=== PATIENT | female | born 1950 | race Caucasian/White ===

== ENCOUNTER 2023-01-06 15:28 | Outpatient (CLI) | payer MEDICARE, BC, OTHER, SELFPAY ==
--- NOTE | 2023-01-06 14:00 | DI.RAD_ITS ---
Exam(s) XR SHOULDER LT COMPLETE 2+V EXAM: XR SHOULDER LT COMPLETE 2+V CLINICAL HISTORY: Left shoulder pain. TECHNIQUE: 2D digital imaging was performed of the left shoulder. Two images were obtained. AP and Y views were obtained. COMPARISON: CR SHOULDER from 10/01/2022 FINDINGS: BONES: There is stable alignment of the proximal left humeral fracture deformity. No new fracture is seen. The bones are osteopenic. There are old healed rib fractures. JOINTS: No dislocation present. SOFT TISSUE: Normal. IMPRESSION: Stable humeral fracture deformity. DATA REPOSITORY: RADIATION DOSE DELIVERED:
== END 2023-01-06 15:29 | disposition home or self-care (01) ==
LOC: DIORS 15:28
PROVIDERS: PCP Physician Assistant Medical; Referring Provider Physician Assistant Medical; Visit Provider Student in an Organized Health Care Education/Training Program
DX: M25.512 Pain in left shoulder (principal); S42.202A Unspecified fracture of upper end of left humerus, initial encounter for closed fracture; X58.XXXA Exposure to other specified factors, initial encounter
CPT/HCPCS: 99203; 73030

== ENCOUNTER → 2023-01-21 01:25 | Outpatient (CLI) | payer MEDICARE, BC, OTHER, SELFPAY ==
--- NOTE | 2023-01-21 06:12 | DI.MRI_ITS ---
Exam(s) MR UPPER JOINT LT WO EXAM: MR UPPER JOINT LT WO CLINICAL HISTORY: ? RTC TEAR, PAIN NOT RESOLVING,closed fx lt proximal humerus,[id number]. TECHNIQUE: Multiplanar multisequence MRI was performed. COMPARISON: CR SHOULDER from 07/08/2022 CR XR SHOULDER LT COMPLETE 2+V from 01/06/2023 FINDINGS: BONES: There again seen findings of a fracture involving the surgical neck of the left humerus. Ther e is associated edema. JOINTS: Degenerative changes are seen at the acromioclavicular joint. The glenohumeral joint is norm al. TENDONS: Supraspinatus: Tendinosis but no evidence of a tear. Infraspinatus: Tendinosis but no evidence of a tear. Subscapularis: Unremarkable. Teres [place]: Unremarkable. Biceps and [place]: Unremarkable. MUSCLES: Unremarkable. GLENOID LABRUM: Unremarkable on this noncontrast examination. There is hyperintense signal seen super ior posteriorly between the labrum and the capsule. There is a question of disruption of the capsule at the superior posterior aspect of the joint. SOFT TISSUES: Unremarkable. LIGAMENTS: Unremarkable. OTHER: Subacromial and subdeltoid bursae are unremarkable. IMPRESSION: 1. Stable alignment of the proximal left humeral fracture. 2. Tendinosis of the supraspinatus and infraspinatus tendons without evidence of a tear. 3. Question of disruption of the capsule at the posterior superior aspect of the joint. DATA REPOSITORY:
== END ==
PROVIDERS: PCP Physician Assistant Medical; Visit Provider Student in an Organized Health Care Education/Training Program
DX: S42.292D Other displaced fracture of upper end of left humerus, subsequent encounter for fracture with routine healing (principal); X58.XXXD Exposure to other specified factors, subsequent encounter
CPT/HCPCS: 73221

== ENCOUNTER → 2023-01-26 11:08 | Outpatient (BNVA) | payer MEDICARE, BC, OTHER, SELFPAY | PROVIDERS: PCP Physician Assistant Medical; Referring Provider Physician Assistant Medical; Visit Provider Student in an Organized Health Care Education/Training Program | DX: S42.202D Unspecified fracture of upper end of left humerus, subsequent encounter for fracture with routine healing (principal); X58.XXXD Exposure to other specified factors, subsequent encounter; M25.612 Stiffness of left shoulder, not elsewhere classified | CPT/HCPCS: 99213 ==

== ENCOUNTER → 2024-02-09 09:59 | Outpatient (BNVA) | payer MEDICARE, BC, OTHER, SELFPAY | PROVIDERS: PCP Physician Assistant Medical; Referring Provider Physician Assistant Medical; Visit Provider Physician Assistant Surgical | DX: J84.9 Interstitial pulmonary disease, unspecified (principal); R93.89 Abnormal findings on diagnostic imaging of other specified body structures | CPT/HCPCS: 36415; 99215 ==

== ENCOUNTER 2024-02-09 12:25 | Outpatient (REF) | payer MEDICARE, BC, OTHER, SELFPAY ==
[2024-02-10 15:51] LABS: Rheumatoid Factor <8.6 IU/mL (<12.0)
[2024-02-10 15:53] LABS: Cyclic Citrullinated Peptide <2.5 U/mL (<5.0)
[2024-02-10 16:00] LABS: Ro60 Ab, IgG <7.0 CU (<20.0); SS-A/Ro, IgG <2.3 CU (<20.0); SS-B (La) Ab, IgG <3.3 CU (<20.0)
[2024-02-10 16:01] LABS: ANA Interpretation Positive (Negative)
== END 2024-02-09 12:26 | disposition home or self-care (01) ==
LOC: LBN 12:25
PROVIDERS: PCP Physician Assistant Medical; Visit Provider Physician Assistant Surgical
DX: J84.89 Other specified interstitial pulmonary diseases (principal); M19.09 Primary osteoarthritis, other specified site
CPT/HCPCS: 86200; 86038; 86235; 86431

== ENCOUNTER 2024-02-25 00:39 | Outpatient (CLI) | payer MEDICARE, BC, SELFPAY ==
--- NOTE | 2024-02-25 07:00 | DI.CT_ITS ---
Exam(s) CT CHEST HIGH RESOLUTION EXAM: CT CHEST HIGH RESOLUTION CLINICAL HISTORY: ILD, abnormal CXR. TECHNIQUE: Imaging protocol: Axial computed tomography images were obtained and coronal and sagittal reformatted images were created and reviewed. Additional expiratory images were performed at 10 mill imeter intervals. CONTRAST MATERIAL: Noncontrast COMPARISON: CR XR CHEST 2VW (D) from 12/30/2023 FINDINGS: Pulmonary parenchyma: No consolidation. No suspicious nodules. Mild apical scarring. Mild areas of a ir trapping in the upper lobes, left greater than right. Emphysema: None. Tracheobronchial tree: No mucous plugging. No bronchiectasis . Interstitial changes: Minimal interstitial changes at the left lung base. Pleura: No effusion or pneumothorax. Heart: The heart is mildly dilated. The coronary arteries show mild calcifications. Aorta: Thoracic aorta non-dilated. Mild atherosclerotic changes. Lymph nodes: No enlarged lymph nodes. Bones: Degenerative changes are seen. No evidence of compression fracture. Old left rib fracture s. Upper abdomen: Unremarkable. Soft tissues: Unremarkable. IMPRESSION: Minimal interstitial changes at the left lung base. The findings appears significantly improved when compared with prior chest x-ray. RADIATION DOSE DELIVERED: 351.22mGy.cm Total DLP 351.22mGy.cm Total DLP DATA REPOSITORY: All CT scans at this facility are submitted to the National Radiology Data Registry (NRDR) Dose Index Registry (DIR) with the [employer] ([employer]). RADIATION OPTIMIZATION: All CT scans at this facility use at least one of these dose optimization te chniques: automated exposure control; mA and/or kV adjustment per patient size (includes targeted exa ms where dose is matched to clinical indication); or iterative reconstruction.
== END 2024-02-25 00:59 ==
PROVIDERS: PCP Physician Assistant Medical; Visit Provider Physician Assistant Surgical
DX: J84.89 Other specified interstitial pulmonary diseases (principal)
CPT/HCPCS: 71250

== ENCOUNTER → 2024-03-07 13:43 | Outpatient (BNVA) | payer MEDICARE, BC, SELFPAY | PROVIDERS: PCP Physician Assistant Medical; Referring Provider Physician Assistant Medical; Visit Provider Physician Assistant Surgical | DX: R93.89 Abnormal findings on diagnostic imaging of other specified body structures (principal) | CPT/HCPCS: 99214 ==